=== PATIENT | female | born 1960 | race Caucasian/White ===

== ENCOUNTER 2016-09-18 09:25 | Emergency (ER) | payer OTHER ==
[2016-09-18 09:44] VITALS: BP 126/70
--- NOTE | 2016-09-18 09:59 | UC ---
Complaint Female HPI - HPI Summary HPI Summary: burning on urination x 2 days , frequency, no fever, no chills, no flank pain - History Of Current Complaint Chief Complaint: UCGU Stated Complaint: PAINFUL URINATION Time Seen by Provider: 09/18/16 09:39 Hx Obtained From: Patient Hx Last Menstrual Period: age 47 yrs Onset/Duration: Gradual Onset, Lasting Days - 2, Still Present Timing: Constant Severity Initially: Moderate Severity Currently: Moderate Character: Cramping Aggravating Factor(s): Urination Associated Signs And Symptoms: Positive: Back Pain. Negative: Fever, Vaginal Bleeding/Discharge, Vaginal Discharge, Nausea, Vomiting(# Of Episodes =), Genital Swelling, Genital Blisters, Retained Foregin Body (Specify) - Allergies/Home Medications Allergies/Adverse Reactions: Allergies Allergy/AdvReac Type Severity Reaction Status Date / Time No Known Allergies Allergy Verified 09/18/16 09:36 PMH/Surg Hx/FS Hx/Imm Hx Previously Healthy: Yes - Surgical History Surgical History: Yes Surgery Procedure, Year, and Place: APPENDECTOMY; right knee meniscus 2012 @ [facility] - Family History Known Family History: Negative: Cardiac Disease, Diabetes - Social History Alcohol Use: None Alcohol Amount: 5 drinks per week Substance Use Type: None Smoking Status (MU): Former Smoker Type: Cigarettes Have You Smoked in the Last Year: No When Did the Patient Quit Smoking/Using Tobacco: 2008 - Immunization History Most Recent Influenza Vaccination: 2016 Most Recent Tetanus Shot: UTD Most Recent Pneumonia Vaccination: N/A Review of Systems Constitutional: Negative Skin: Negative Eyes: Negative ENT: Negative Respiratory: Negative Cardiovascular: Negative Gastrointestinal: Negative Genitourinary: Dysuria, Frequency Motor: Negative Neurovascular: Negative Musculoskeletal: Negative Neurological: Negative Psychological: Negative All Other Systems Reviewed And Are Negative: Yes Physical Exam Triage Information Reviewed: Yes Appearance: Well-Appearing, No Pain Distress, Well-Nourished Vital Signs: Initial Vital Signs Temp 98.3 F 09/18/16 09:38 Pulse 76 09/18/16 09:38 Resp 16 09/18/16 09:38 BP 126/70 09/18/16 09:38 Pulse Ox 98 09/18/16 09:38 Eye Exam: Normal Eyes: Positive: Conjunctiva Clear ENT: Positive: Normal ENT inspection, Hearing grossly normal, Pharynx normal Neck: Positive: Supple, Nontender, No Lymphadenopathy Respiratory: Positive: Chest non-tender, Lungs clear, Normal breath sounds Cardiovascular: Positive: RRR, No Murmur, Pulses Normal Abdominal Exam: Normal Abdomen Description: Positive: Nontender, Soft. Negative: CVA Tenderness (R), CVA Tenderness (L), Distended, Guarding Bowel Sounds: Positive: Present Skin Exam: Normal Complaint Female Dx - Differential Dx/Diagnosis Provider Diagnoses: UTI Discharge - Discharge Plan Condition: Stable Disposition: HOME Prescriptions: Sulfamethox/Trimethoprim DS* [Bactrim DS 800/160 TAB*] 1 tab PO BID #14 tab Patient Education Materials: Urinary Tract Infection in Women (ED) Referrals: NGHIA Kirby [Primary Care Provider] - If Needed
--- NOTE | 2016-09-20 10:09 | UC ---
Progress - Progress Note Progress Note: please notify pt that her infection is resistant to Bactrim stop current antibiotic keflex ERxed recheck in 2-3 days if not better recheck sooner for fever/vomiting/severe back pain
== END 2016-09-18 10:00 | disposition home or self-care (01) ==
LOC: UCCORT 09:25
DX: N39.0 Urinary tract infection, site not specified (principal); Z87.891 Personal history of nicotine dependence
CPT/HCPCS: 81003; 87077; 87086; 87186; 99212; G0463

== ENCOUNTER 2017-03-30 11:16 | Emergency (ER) | payer OTHER ==
[2017-03-30 12:10] VITALS: BP 122/60
--- NOTE | 2017-03-30 13:39 | UC ---
Skin Complaint HPI - HPI Summary HPI Summary: Britt oral rash that is tender and irritated for about a few weeks. Avoiding lotion and using otc steroid cream has not helped. - History of Current Complaint Chief Complaint: UCSkin Time Seen by Provider: 03/30/17 13:26 Stated Complaint: SKIN COMPLAINT Hx Obtained From: Patient Hx Last Menstrual Period: age 47 yrs ?: No Onset/Duration: Gradual Onset, Lasting Weeks Skin Exposure Onset/Duration: Weeks Ago Onset Severity: Moderate Current Severity: Moderate Location: Discrete Character: Redness, Painful Aggravating Factor(s): Touch Alleviating Factor(s): Nothing Associated Signs & Symptoms: Positive: Rash, Tenderness. Negative: Vomiting, Numbness, Thirst, Diaphoresis, Weakness, Pallor, Shivering, Fever, Chills, Syncope, Drainage, Bruising - Allergy/Home Medications Allergies/Adverse Reactions: Allergies Allergy/AdvReac Type Severity Reaction Status Date / Time No Known Allergies Allergy Verified 03/30/17 11:54 Home Medications: Home Medications Insulin LISPRO* [HumaLOG*] 0 units SUBCUT DIRECTED 03/30/17 [History Confirmed 03/30/17] Review of Systems Skin: Rash All Other Systems Reviewed And Are Negative: Yes PMH/Surg Hx/FS Hx/Imm Hx Previously Healthy: Yes - Surgical History Surgical History: Yes Surgery Procedure, Year, and Place: APPENDECTOMY; right knee meniscus 2012 @ [facility] - Family History Known Family History: Negative: Cardiac Disease, Diabetes - Social History Occupation: Employed Full-time Alcohol Use: Rare Alcohol Amount: 5 drinks per week Substance Use Type: None Smoking Status (MU): Former Smoker Type: Cigarettes Have You Smoked in the Last Year: No When Did the Patient Quit Smoking/Using Tobacco: 2009 - Immunization History Most Recent Influenza Vaccination: 2016 Most Recent Tetanus Shot: UTD Most Recent Pneumonia Vaccination: N/A Physical Exam Triage Information Reviewed: Yes Appearance: Well-Appearing, No Pain Distress, Well-Nourished Vital Signs: Initial Vital Signs Temp 97.4 F 03/30/17 11:57 Pulse 58 03/30/17 11:57 Resp 16 03/30/17 11:57 BP 122/60 03/30/17 11:57 Pulse Ox 99 03/30/17 11:57 Vital Signs Reviewed: Yes Eyes: Positive: Conjunctiva Clear ENT: Positive: Normal ENT inspection Dental: Negative: Gross Decay/Caries @, Dental Fracture @, Abscess @, Cellulitis @, Cervical Lymphadenopathy Neck exam: Normal Neck: Positive: Supple, Nontender, No Lymphadenopathy Respiratory: Positive: No accessory muscle use. Negative: Respiratory distress , Decreased breath sounds Cardiovascular: Positive: Pulses Normal, Brisk Capillary Refill Abdomen Description: Positive: Distended, Guarding Bowel Sounds: Positive: Present, Absent Musculoskeletal: Positive: Strength Intact, ROM Intact, No Edema Neurological: Positive: Alert, Muscle Tone Normal. Negative: Fatigued Psychological: Positive: Normal Response To Family, Age Appropriate Behavior Skin Exam: Other - Allen corners of the mouth and surrounding skin shows redness and maculopapular rash without pustules or vesicles. There is sourounding redness. it is not very tender or indurationed. Course/Dx - Course Course Of Treatment: We will try triamcinolone ointment. If this does not work, she will go to Dr. Blackburn, quality project manager for second opinion. - Diagnoses Provider Diagnoses: rash Discharge - Discharge Plan Condition: Good Disposition: HOME Prescriptions: Triamcinolone 0.5% OINT * 1 applic TOPICAL BID #1 tube Patient Education Materials: Acute Rash (ED) Referrals: Toshia Blackburn [Medical Doctor] -
== END 2017-03-30 13:37 | disposition home or self-care (01) ==
LOC: UCCORT 11:16
DX: R21 Rash and other nonspecific skin eruption (principal); Z72.89 Other problems related to lifestyle; Z87.891 Personal history of nicotine dependence
CPT/HCPCS: 99212; G0463

== ENCOUNTER 2018-05-11 14:58 | Emergency (ER) | payer OTHER ==
--- OUTSIDE RECORDS SUMMARY | 2018-05-11 15:26 | XMS REPORT | Continuity of Care Document ---
:1960 External Reference #:[id number] Author Name Jacob Choudhary M.D. Address [address] [place] [address] Care Team Providers Name Role Phone Shala Torres M.D. Primary Care Physician Unavailable Payers Type Date Identification Numbers Payment Provider Subscriber Policy Number: [id number] Apwu Juli Chatter[employer] Group Name: [id number] [id number] PayID: [id number] [place] [address] Advance Directives Description No Information Available Problems Date Description Provider Status Onset: Vitiligo Active Onset: Hypothyroidism Active Onset: Type 1 diabetes mellitus Active Note: 1996 Onset: Migraine Active Onset: Hypercholesterolemia Active Onset: 08/04/2015 Nuclear senile cataract Jacob Choudhary M.D. 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 ETOH Use Occasionally consumes alcohol Recreational Drug Use Denies Drug Use Tobacco Use Start: Unknown Patient has never smoked Smoking Status Reviewed: 04/17/18 Patient has never smoked Allergies, Adverse Reactions, Alerts Description No Known Drug Allergies Medications Medication Date Status Form Strength Qnty SIG Indications Ordering Provider Atorvastatin 00/ Active Tablets 20mg Unknown Calcium 0000 Levothyroxine /00/ Active Tablets 150mcg daily Unknown Sodium 0000 Lisinopril / Active Tablets 5mg take 1 Unknown 0000 tablet by mouth once daily Vitamin D-3 / Active Capsules 1000Unit every Unknown 0000 day Aspirin Adult / Active Tablets DR 81mg 2 tabs Unknown Low Dose 0000 every day Lutein 00// Active Capsules 20mg Unknown 0000 Humalog / Active Solution 100Unit/ML in pump Unknown 0000 Cartridge Garcinia / Active Tablets 500-200mg- Unknown Cambogia-Chromi 0000 mcg um Acidophilus / Active Tablets Unknown Probiotic 0000 Complex Cranberry / Active Capsules 200mg Unknown 0000 Pataday / Active Solution 0.2% 2.500m 1 drop Jacob J. 0000 l both [place], eyes M.D. every day Levothyroxine / Hx Tablets 150mcg Unknown Sodium 0000 - 2016 Novolog // Hx Solution 100Unit/ML Unknown 0000 - 2017 Vitamin // Hx Tablets 500-400mcg every Unknown [id number] Acid 0000 - day 2017 Immunizations Description No Information Available Vital Signs Description No Information Available Results Description No Information Available Procedures Date Code Description Status 11/29/2017 98008 Scanning Computerized Opthalmic Diagnostic Posterior Seg Completed Retina 11/29/2017 31980 Est Patient Intermediate Exam Completed 08/02/2017 38651 Scanning Computerized Opthalmic Diagnostic Posterior Seg Completed Retina 08/02/2017 68978 Est Patient Intermediate Exam Completed 08/02/2017 520 Cutemol Lotion (2Oz) Completed 01/24/2017 70484 Scanning Computerized Opthalmic Diagnostic Posterior Seg Completed Retina 01/24/2017 49480 Est Patient Comprehensive Exam Completed 08/03/2016 52259 Scanning Computerized Opthalmic Diagnostic Posterior Seg Completed Retina 08/03/2016 43546 Est Patient Comprehensive Exam Completed 08/04/2015 30960 Est Patient Comprehensive Exam Completed 12/24/2013 23163 Determination Of Refractive State Completed 12/24/2013 49853 Est Patient Comprehensive Exam Completed 12/13/2012 13439 Est Patient Comprehensive Exam Completed 12/09/2011 27716 Est Patient Comprehensive Exam Completed 11/26/2010 30616 Determination Of Refractive State Completed 11/26/2010 22005 New Patient Comprehensive Exam Completed Encounters Description No Information Available Plan of Treatment 04/17/2018 - Jacob Choudhary M.D.[id number] Type 1 diabetes mellitus with mild nonproliferative diabetic retinopathy without macular edema, bilateralComments: Smoking can increase the risk of developing or worsening any eye related disease , as well as affect your overall health. If you are a smoker, we strongly recommend that you quit.If you are not a smoker, we strongly recommend that you do not start. I can detect diabetic changes in your eyes. Proper control of your diabetes is important for the health of your eyes. It is important that you keep all of your follow up appointments. Dr. Choudhary has sent a report to your primary care doctor, letting them know the current status of your retina.Follow up:6 Month Follow Up OCT MAC You can expect to have your eyes dilated at your next visit. If Dr. Rhodesoorders any additional testing, it may require extra time. We recommend that you bring sunglasses, asdilation drops often make you light sensitive until they wear off. We always recommend you bring someone to drive you home if you are uncomfortable driving with your eyes dilated. If you have any questions before your next visit, feel free to call our office at .[id number] Age-related nuclear cataract, bilateralComments:You have been diagnosed with cataracts. If you are happy with your vision as it is now, then we willsee you at your next scheduled appointment. If you feel like your vision is getting worse before your scheduled appointment, please call Malaika Burnham at [phone].
[2018-05-11 15:35] VITALS: BP 142/67
--- NOTE | 2018-05-11 15:51 | UC ---
Lower Extremity/Ankle HPI - HPI Summary HPI Summary: [place] L knee instability after tripping/slipping on ice but did not fall down. she is limping b/c she feels her L knee will give way. felt L toe numbness for a bit but then it resolved. denies bruising, numbness that lasts all day or swelling. - History of Current Complaint Chief Complaint: UCLowerExtremity Stated Complaint: LEFT KNEE INJURY Time Seen by Provider: 05/11/18 15:33 Hx Obtained From: Patient Hx Last Menstrual Period: age 47 yrs Pain Intensity: 6 Pain Scale Used: 0-10 Numeric Aggravating Factor(s): Standing, Ambulation Alleviating Factor(s): Nothing - Allergies/Home Medications Allergies/Adverse Reactions: Allergies Allergy/AdvReac Type Severity Reaction Status Date / Time No Known Allergies Allergy Verified 05/11/18 15:35 Home Medications: Home Medications Cholecalciferol TAB* [Vitamin D TAB*] 2,000 units PO DAILY 05/11/18 [History Confirmed 05/11/18] PMH/Surg Hx/FS Hx/Imm Hx Endocrine History: Diabetes, Hypothyroidism Cardiovascular History: Cardiac Disease, Hypertension - Surgical History Surgical History: Yes Surgery Procedure, Year, and Place: APPENDECTOMY; right knee meniscus 2012 @ [facility] - Family History Known Family History: Negative: Cardiac Disease, Diabetes - Social History Alcohol Use: Rare Alcohol Amount: 5 drinks per week Substance Use Type: None Smoking Status (MU): Former Smoker Type: Cigarettes Have You Smoked in the Last Year: No When Did the Patient Quit Smoking/Using Tobacco: 2009 - Immunization History Most Recent Influenza Vaccination: 2016 Most Recent Tetanus Shot: UTD Most Recent Pneumonia Vaccination: N/A Review of Systems All Other Systems Reviewed And Are Negative: Yes Constitutional: Positive: Negative Skin: Negative: Bruising Neurovascular: Negative: Decreased Sensation, Decreased Pulses Musculoskeletal: Positive: Arthralgia - L knee pain, Decreased ROM - L knee. Negative: Myalgia Neurological: Positive: Numbness - L toe intermittent. Physical Exam Triage Information Reviewed: Yes Appearance: Well-Appearing Vital Signs: Initial Vital Signs Temp 98.0 F 05/11/18 15:33 Pulse 70 05/11/18 15:33 Resp 18 05/11/18 15:33 BP 142/67 05/11/18 15:33 Pulse Ox 100 05/11/18 15:33 Vital Signs Reviewed: Yes Musculoskeletal: Positive: Strength Intact - L knee, ROM Intact - w/ pain, No Edema, Other: - neg. ant. drawer test, neg. L knee ballotment. feeling of instability when she goes on tippy toes. Neurological: Positive: Alert Diagnostics - Radiology No standard instances Radiology Interpretation Completed By: Radiologist Summary of Radiographic Findings: IMPRESSION: OSTEOARTHRITIS. NO ACUTE OSSEOUS INJURY. IF SYMPTOMS PERSIST, RECOMMEND REPEAT IMAGING. Lower Extremity Course/Dx - Course Course Of Treatment: L knee instability after sliding on some ice, did not fall. XRAY normal so no fx. on exam neg. ant. drawer test and tender at both latera/medial meniscus. neg. ballotment test. pt. feels L knee unstable when she goes on tippy toes. neurovascularly intact on LE, left side. plan is for her to see ortho for possible MRI or further torres eval. - Differential Dx/Diagnosis Differential Diagnosis/HQI/PQRI: Contusion, Dislocation, Fracture (Closed), Sprain, Strain, Tendonitis Provider Diagnosis: Instability of left knee joint Discharge - Sign-Out/Discharge Documenting (check all that apply): Patient Departure All imaging exams completed and their final reports reviewed: Yes - Discharge Plan Condition: Good Disposition: HOME Prescriptions: Ibuprofen [Ibu] 600 mg PO TID 10 Days #30 tablet Patient Education Materials: Knee Pain (ED) Forms: *Work Release Referrals: Beka Thorpe MD [Medical Doctor] - 7 Days (Workman's comp. ) Additional Instructions: XRAY did not show any bony abnormality. for ligamental or tendon issue further testing must be done. I've referred you to Orthopedics to do a torres evaluation and consider MRI testing. Nichelle colindres see Ortho you should not walk on it. - Billing Disposition and Condition Condition: GOOD Disposition: Home
== END 2018-05-11 17:07 | disposition home or self-care (01) ==
LOC: UCCORT 14:58
DX: M25.362 Other instability, left knee (principal); I10 Essential (primary) hypertension; E11.9 Type 2 diabetes mellitus without complications; Z87.891 Personal history of nicotine dependence; W18.49XA Other slipping, tripping and stumbling without falling, initial encounter; Y92.9 Unspecified place or not applicable
CPT/HCPCS: 99212; G0463